=== PATIENT | male | born 1985 | race Caucasian/White ===

== ENCOUNTER 2019-01-04 16:44 | Emergency (ER) | payer OTHER, SELFPAY ==
[2019-01-04 16:47] VITALS: BP 137/83; PULSE 79; RESP 16; TEMP 36.6; O2SAT 99; BMI 28.5
--- NOTE | 2019-01-04 17:16 | DI.RAD.S_ITS ---
PROCEDURE: XR CHEST 1V INDICATIONS: chest pain TECHNIQUE: One view of the chest was acquired. COMPARISON: None. FINDINGS: Surgical changes and devices: None. Lungs and pleura: Lungs are clear. No pleural effusions or pneumothorax. Mediastinum: Mediastinal contours appear normal. Heart size is normal. Bones and chest wall: No suspicious bony lesions. Overlying soft tissues appear unremarkable. IMPRESSION: No acute disease Dictated by: Mk Rodriguez M.D. on 01/04/2019 at 18:04 Approved by: Mk Rodriguez M.D. on 01/04/2019 at 18:04
[2019-01-04 17:34] VITALS: BP 134/82; PULSE 63; RESP 16; O2SAT 100
[2019-01-04 17:39] LABS: Add Manual Diff / Slide Review NO; Basophils Absolute Auto 100 /uL (0-100); Basophils Percent Auto 0.8 % (0-2); Eosinophils Absolute Auto 400 /uL (0-450); Eosinophils Percent Auto 3.9 % (2-4); Hematocrit 41.3 % (41-53); Hemoglobin 14.1 g/dL (13.5-17.5); Lymphocytes Absolute Auto 2600 /uL (1100-4500); Lymphocytes Percent Auto 26.8 % (25-40); Mean Corpuscular HGB Conc 34.1 % (30-36); Mean Corpuscular Hemoglobin 29.1 PG (26-34); Mean Corpuscular Volume 85.5 fL (80-100); Monocytes Absolute Auto 600 /uL (0-900); Monocytes Percent Auto 6.1 % (3-14); Neutrophils Absolute Auto 6100 /uL (1500-7000); Neutrophils Percent Auto 62.4 % (50-75); Platelet Count 280 X10^3/uL (150-400); Red Blood Cell Count 4.83 X10^6/uL (4.5-5.9); Red Cell Distribution Width 13.6 % (11.6-14.8); White Blood Cell Count 9.8 X10^3/uL (4.5-11.0)
[2019-01-04 17:46] LABS: Prothrombin Time 11.7 SECONDS (10.1-12.7)
[2019-01-04 17:49] LABS: PTT Partial Thromboplastin Tim 38 SECONDS (26.4-36.2)
--- NOTE | 2019-01-04 18:06 | ED_ITS ---
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 About 1-2 p.m. today he he was testing an electrical panel. He sustained an electrical shock to his right index finger, he had tingling shooting to the right shoulder. He initially thought nothing of a, he later developed chest discomfort and I discomfort which is now resolved. The event was several hours ago. There was no weakness, dizziness or syncope. He had grounding attachments on issues. He has no pain in his left hand, wrist feet. He has no ongoing chest pain or palpitations. He has no chronic medical problems. He is on no medications. Related Data Allergies Allergy/AdvReac Type Severity Reaction Status Date / Time flu vaccine AdvReac Uncoded 01/04/19 16:52 Review of Systems Review of Systems ROS Unobtainable: All systems reviewed & are unremarkable except as noted in HPI and below Constitutional Constitutional: Reports as per HPI, Denies chills, Denies lethargy and Denies weakness Eyes Eyes: Denies blind spots, Denies blurry vision and Denies diplopia Comments: Ocular complaints from earlier have resolved. ENT Ears, Nose, Mouth, and Throat: Denies change in voice, Denies neck pain and Denies sore throat Cardiovascular Cardiovascular: Reports chest pain (Now resolved), Denies irregular heart rhythm, Denies lightheadedness, Denies palpitations, Denies dyspnea and Denies orthopnea Respiratory Respiratory: Denies cough, Denies dyspnea and Denies wheezing Gastrointestinal Gastrointestinal: Denies abdominal pain, Denies diarrhea, Denies nausea and De nies vomiting Musculoskeletal Musculoskeletal: Denies back pain, Denies neck pain, Denies numbness, Denies stiffness and Denies tingling Integumentary/Breasts Skin/Breast: Denies pruritus, Denies erythema, Denies rash and Denies wounds Neurologic Neurologic: Denies numbness, Denies tingling and Denies weakness Endocrine Endocrine: Denies palpitations Allergic/Immunologic Allergic/Immunologic: Denies wheezing [facility] Medical History (Updated 01/04/19 @ 19:[address] MD) No acute medical problems (Acute) Surgical History (Updated 01/04/19 @ 19:[address] MD) No significant past surgical history (Acute) Social History Smoking Status: Current every day smoker Social History Smoking Status: Current every day smoker Exam Initial Vital Signs Initial Vital Signs: Vital Signs Temperature 97.9 F 01/04/19 16:47 Pulse Rate 79 01/04/19 16:47 Respiratory Rate 16 01/04/19 16:47 Blood Pressure 137/83 01/04/19 16:47 Pulse Oximetry 99 01/04/19 16:47 Const General: cooperative and well developed Nutritional Appearance: well nourished Orientation: alert, awake, oriented x3 and not confused HENMT Head: normocephalic and atraumatic Nose: external nose normal Mouth: oral mucosae normal and moist mucous membranes Throat: posterior oropharynx normal and tonsils normal Eyes General: appearance normal, both eyes and all related structures Eyelids: eyelids normal Conjunctivae: conjunctivae normal Sclera: sclerae normal Pupils: PERRL EOM: EOM intact bilaterally Neck Neck: normal visual inspection, trachea midline and No lymphadenopathy Chest Chest: normal inspection of the chest Resp Effort & Inspection: normal respiratory effort, able to speak in complete sentences, no respiratory distress and no use of accessory muscles Auscultation: clear to auscultation bilaterally, no rales, no rhonchi and no wheezes Cardio Rate: regular rate Rhythm: regular rhythm Heart Sounds: no click, no gallops, no murmurs and no rubs Pulses: normal peripheral pulses GI Inspection: non-distended Palpation: soft, no hepatosplenomegaly, No guarding, No pulsatile mass and No tender Auscultation: normal bowel sounds Back/Spine/Pelvis Back: normal to inspection Skin Other: No evidence of burn or other injuries on his hands or feet. Neuro General: alert, oriented x3, gait normal and no focal motor deficits Speech: speech normal Course Course Course Narrative: The patient has sustained an electrical shock, without obvious damage. He has no symptoms at this time. Orders Ordered: ED Orders 01/04/19 17:33 Complete Blood Count AUTO DIFF Stat Comprehensive Metabolic Panel Stat Lipase Stat Partial Thromboplastin Time Stat Prothrombin Time INR Stat Troponin & CK Cardiac Panel Stat Vital Signs Vital signs: Vital Signs - 8 hr 01/04/19 18:26 01/04/19 19:12 Pulse Rate 60 63 Respiratory Rate 16 18 Blood Pressure [Left Arm] 124/74 125/83 Pulse Oximetry 98 100 MDM - Chest Pain Lab Data Result diagrams: 01/04/19 17:33 01/04/19 17:33 Labs: Lab Results 01/04/19 01/04/19 01/04/19 Range/Units 17:33 17:33 17:33 WBC 9.8 (4.5-11.0) X10^3/uL RBC 4.83 (4.5-5.9) X10^6/uL Hgb 14.1 (13.5-17.5) g/dL Hct 41.3 (41-53) % MCV 85.5 (80-100) fL MCH 29.1 (26-34) PG MCHC 34.1 (30-36) % RDW 13.6 (11.6-14.8) % Plt Count 280 (150-400) X10^3/uL Neut % (Auto) 62.4 (50-75) % Lymph % (Auto) 26.8 (25-40) % Marion % (Auto) 6.1 (3-14) % Eos % (Auto) 3.9 (2-4) % Baso % (Auto) 0.8 (0-2) % Neut # (Auto) 6100 (0844-9457) /uL Lymph # (Auto) 2600 (4774-4063) /uL Marion # (Auto) 600 (0-900) /uL Eos # (Auto) 400 (0-450) /uL Baso # (Auto) 100 (0-100) /uL PT 11.7 (10.1-12.7) SECONDS INR 1.0 (0.9-1.3) APTT 38 H (26.4-36.2) SECONDS Sodium 141 (137-145) mmol/L Potassium 4.2 (3.4-5.1) mmol/L Chloride 105 (98-107) mmol/L Carbon Dioxide 28 (22-32) mmol/L BUN 13 (9-20) mg/dL Creatinine 0.80 (0.66-1.25) mg/dL Estimated GFR > 60.0 (>60) mL/min BUN/Creatinine Ratio 16.3 (6-22) Glucose 101 H (70-100) mg/dL Calcium 9.5 (8.4-10.2) mg/dL Total Bilirubin 0.4 (0.2-1.3) mg/dL AST 30 (17-59) IU/L ALT 42 (21-72) IU/L Alkaline Phosphatase 66 (38-126) U/L Total Creatine Kinase 87 (55-170) U/L CK-MB (CK-2) TNP CK-MB (CK-2) Rel Index TNP Troponin I < 0.012 (0.01-0.034) ng/mL Total Protein 7.8 (6.3-8.2) g/dL Albumin 4.3 (3.5-5.0) g/dL Globulin 3.5 (1.7-4.1) g/dL Albumin/Globulin Ratio 1.2 (1.0-2.8) Lipase 44 (23-300) U/L ECG Data Attestation: I personally reviewed and interpreted this ECG as follows: (Sinus bradycardia rate 54 beats per minute. Right ventricular conduction delay. Early repolarization. No acute ST T wave changes. No ectopy.) Discharge Plan Departure Patient Disposition: Home Clinical Impression: Electric shock Qualifiers: Encounter type: initial encounter Qualified Code(s): T75.4XXA - Electrocution, initial encounter Discharge Date/Time: 01/04/19 19:18 Instructions: DI for Electric Shock Injuries Activity Restrictions/Additional Instructions: There are no obvious significant injuries on the assessment done today. If ot her symptoms arise follow up with your doctor or return here.
[2019-01-04 18:26] VITALS: BP 124/74; PULSE 60; RESP 16; O2SAT 98
[2019-01-04 18:44] LABS: Alanine Aminotransferase 42 IU/L (21-72); Albumin 4.3 g/dL (3.5-5.0); Albumin Globulin Ratio 1.2 (1.0-2.8); Alkaline Phosphatase 66 U/L (38-126); Aspartate Aminotransferase 30 IU/L (17-59); BUN Creatinine Ratio 16.3 (6-22); Bilirubin Total 0.4 mg/dL (0.2-1.3); Blood Urea Nitrogen 13 mg/dL (9-20); Calcium 9.5 mg/dL (8.4-10.2); Carbon Dioxide 28 mmol/L (22-32); Chloride 105 mmol/L (98-107); Creatine Kinase 87 U/L (55-170); Estimated Glomerular Filt Rate > 60.0 mL/min (>60); Globulin 3.5 g/dL (1.7-4.1); Glucose 101 mg/dL (70-100); HEMOLYSIS < 15 (0-50); Lipase 44 U/L (23-300); Potassium 4.2 mmol/L (3.4-5.1); Sodium 141 mmol/L (137-145); Total Protein 7.8 g/dL (6.3-8.2)
[2019-01-04 18:55] LABS: Troponin I < 0.012 ng/mL (0.01-0.034)
[2019-01-04 19:12] VITALS: BP 125/83; PULSE 63; RESP 18; O2SAT 100
== END 2019-01-04 19:18 | disposition home or self-care (01) ==
PROVIDERS: Emergency Medicine; Emergency Provider Emergency Medicine
DX: T75.4XXA Electrocution, initial encounter (principal); R07.9 Chest pain, unspecified; Y99.0 Civilian activity done for income or pay
CPT/HCPCS: 36415; 71045; 80053; 82550; 83690; 84484; 85025; 85610; 85730; 93005; 99283; 99285

== ENCOUNTER 2025-02-16 17:47 | Emergency (ER) | payer OTHER, SELFPAY ==
[2025-02-16 17:57] VITALS: BP 128/79; PULSE 88; RESP 18; TEMP 36.8; O2SAT 98; BMI 31.1
--- NOTE | 2025-02-16 18:03 | DI.RAD.S_ITS ---
PROCEDURE: XR HAND RT MIN 3V INDICATIONS: hand smashed in drawer TECHNIQUE: 3 views of the hand(s) acquired. COMPARISON: None. FINDINGS: Bones: No acute appearing fractures or dislocations. There is a remote 5th metacarpal fracture which has healed with angulation. Carpal bones are normally aligned. No suspicious bony lesions. Soft tissues: No suspicious soft tissue calcifications. IMPRESSION: No acute fracture can be seen. Remote 5th metacarpal fracture. Dictated by: Deandre Martell M.D. on 02/16/2025 at 18:18 Approved by: Deandre Martell M.D. on 02/16/2025 at 18:18
--- NOTE | 2025-02-16 20:14 | ED.UPPEXIN ---
HPI - Extremity Injury (Upper) General Chief Complaint: Extremity Injury, Upper Stated Complaint: R hand injury, slammed in door Time Seen by Provider: 02/16/25 19:37 Source: patient Mode of arrival: Ambulatory History of Present Illness HPI narrative: 39-year-old male without any significant past medical history comes into the ED from home for evaluation of right hand pain, he states that he works at [employer] was at the [employer] in area and states that the hand your slammed on his hand, states that he did break his hand previously but the pain is primarily to the base of the 1st finger, he denies numbness weakness tingling denies any blood thinners denies any other symptoms at this time Related Data Allergies Allergy/AdvReac Type Severity Reaction Status Date / Time flu vaccine AdvReac Uncoded 01/04/19 16:52 Review of Systems Review of Systems Narrative: General: Denies fever, chills, weight loss HEENT: Denies headache, eye drainage, eye irritation, head trauma, sore throat, voice change Cardiovascular: Denies any chest pain, palpitations, tachycardia Respiratory: Denies any shortness of breath, cough, wheeze, stridor GI/: Denies any abdominal pain, nausea, vomiting, diarrhea, bright red blood per rectum, melanotic stools, urinary frequency, urinary retention, dysuria, hematuria MSK: Pain to the right hand Skin: Denies any rashes, lesions, discoloration Neuro: Denies any headache, lightheadedness, dizziness, fainting, weakness Psych: Denies SI/HI Patient History Medical History (Updated 02/16/25 @ 20:19 by Hamilton York DO) No acute medical problems Surgical History (Updated 01/04/19 @ 19:[address] MD) No significant past surgical history Social History Smoking Status: Current some day smoker Smoking Status: Current some day smoker tobacco type: cigarettes Exam Narrative Exam Narrative: General: Cooperative, well-developed, not in acute distress HEENT: Normocephalic, atraumatic, PERRLA, normal sclera, eyelids normal Neck: Active full range of motion, atraumatic Chest: Normal to inspection, negative crepitus, no overlying erythema ecchymosis Respiratory: Normal respiratory effort, not in acute respiratory distress, clear to auscultation bilaterally negative cough, wheeze, tachypnea, rhonchi, rales Cardiology: Regular rate rhythm negative gallop, murmur, rubs GI/: No tenderness to palpation, soft, non rigid, normal to inspection, exam deferred MSK: Full active range of motion in all 4 extremities, patient with mild tenderness to palpation of the metacarpal of the 2nd digit, he is neurovascularly intact otherwise no overlying ecchymosis abrasion or laceration Skin: No rashes or lesions noted Neuro: Alert awake oriented x3, moves all 4 extremities spontaneously, cranial nerves intact, able to answer all questions appropriately follows commands appropriately Psych: Cooperative, negative suicidal or homicidal ideations Initial Vital Signs Initial Vital Signs: Vital Signs Temperature 98.2 F 02/16/25 17:57 Pulse Rate 88 02/16/25 17:57 Respiratory Rate 18 02/16/25 17:57 Blood Pressure 128/79 02/16/25 17:57 Pulse Oximetry 98 02/16/25 17:57 Oxygen Delivery Method Room Air 02/16/25 17:57 Course Orders Ordered: ED Orders 02/16/25 18:03 XR hand RT min 3V Stat Vital Signs Vital signs: Vital Signs - 8 hr 02/16/25 17:57 Temperature 98.2 F Pulse Rate 88 Respiratory Rate 18 Blood Pressure 128/79 Pulse Oximetry 98 Oxygen Delivery Method Room Air MDM - Extremity Injury (Upper) MDM Narrative Medical decision making narrative: 39-year-old male presenting for pain to his right hand after having a job where slammed shut on it at work, this happened just prior to arrival, on my exam he is neurovascularly intact does have some tenderness to palpation of the base of the metacarpal of the right 2nd digit. X-ray without any acute findings, patient will be placed in Petar wrap for support/comfort and instructed to follow up with primary care in outpatient setting, strict return precautions given he verbalized understanding agrees to being discharged home with outpatient follow up Discharge Plan Departure Patient Disposition: Home Clinical Impression: Contusion of hand Qualifiers: Encounter type: initial encounter Laterality: right Qualified Code(s): S60.221A - Contusion of right hand, initial encounter Instructions: DI for Contusion Activity Restrictions/Additional Instructions: Please continue to use ice for the next 3 days to help with any aches or pains, you can continue to use Motrin or Tylenol to help with the pain Please follow up with the primary care doctor as needed Please read the discharge instructions sheet carefully and bring all papers to all doctor follow-up visits, as it may contain information that your doctor may want to see. Disease processes change and evolve, if your symptoms worsen or if you develop any new symptoms that are concerning to you please return for evaluation. Your evaluation today does not show any evidence of any life-threatening/serious illnesses requiring admission to the hospital or surgery. Please follow-up with your doctor for re-evaluation in approximately 1 day. Seek immediate medical attention for any worrisome symptoms. *If you do not have a primary care provider please contact the [facility] Resource line at [phone]. They will ask some questions about your medical history and help get you set up with a doctor in the community. Stand Alone Forms: Patient Portal/API
[2025-02-16] MEDS: IBUPROFEN 400 MG TABLET PO (20:21)
== END 2025-02-16 20:29 | disposition home or self-care (01) ==
PROVIDERS: Emergency Provider Student in an Organized Health Care Education/Training Program
DX: S60.221A Contusion of right hand, initial encounter (principal); W23.0XXA Caught, crushed, jammed, or pinched between moving objects, initial encounter
CPT/HCPCS: 73130; 99283